=== PATIENT | male | born 1940 | race Caucasian/White ===

== ENCOUNTER 2024-03-02 10:38 | Emergency (ER) | payer MEDICARE, SELFPAY ==
[2024-03-02] VITALS (8 sets, daily range): BP systolic 122–188; BP diastolic 55–79; PULSE 53–58; BMI 24.9
--- NOTE | 2024-03-02 11:09 | ED.GENMED ---
History of Present Illness
General
Chief Complaint: Dizziness
Source: patient
Time Seen by Provider: 03/02/24 10:50
History of Present Illness
History of Present Illness:
83-year-old male with past medical history of paroxysmal atrial fibrillation, hypertension, hyperlipidemia presenting to the emergency department for evaluation after he experienced transient lightheadedness earlier this morning lasting about 30
minutes stating he was standing in his kitchen when he started to feel as if he were 'tipsy' and he decided to take his blood pressure, noting that it was a little bit elevated but more concerning to him was that his heart rate was in the low 40s.
Patient states that he is on a beta-itz and that his heart rate is usually around 54 to 58 bpm so seeing this in the low 40s was a little bit abnormal for him. Patient rechecked his pulse shortly after and it was still in the 40s prompting him
to want to come to the ER for further evaluation. Patient does follow with divemaster, Dr. Zhu, but did not feel that this could wait. Patient states that after he left his house and since arriving to the ER he has been asymptomatic and
feels back to his normal self although states his head does feel little bit foggy still. He denies any headaches, visual changes, focal weakness or numbness, ataxia, chest pain, shortness of breath, palpitations or any other concerns. Social
history was noted for a few nights per week he will have some scotch.
Past History
Past History
ED Past Medical History: Arrthythmia, CHF (Myopathy), GERD, HTN and Other (Prostate problems)
ED Past Surgical History: Cardiac, Cholecystectomy and Urological
Social History
Tobacco: Non-smoker
Alcohol: Occasional
Drug: None
Personal:
Living: with family
Employment: Retired
Family History
Family History: Hypertension
Review of Systems
Review of Systems
All Other Systems: ROS reviewed and negative except as documented in HPI and ROS
Phy Exam
Physical Exam
Physical Exam:
GENERAL: Alert , in no apparent distress
HEAD: NCAT
EYE: conjunctiva clear
NECK: Supple
ENT: o/p clr, mmm.
CARDIAC: bradycardic rate/rhythm, systolic murmur LSB
LUNGS: Clear breath sounds bilaterally, no acute respiratory distress, no wheezes/rales/rhonchi
NEUROLOGICAL: Alert and oriented
SKIN: Warm and dry, skin intact.
MUSCULOSKELETAL: well perfused.
PSYCH: Normal and appropriate interaction.
Scores
Heart Failure Risk
Heart Failure Risk Score: Not Applicable
Heart Score for Chest Pain Patients
STEMI patient?: Not applicable
Withdrawal Assessment of Alcohol
Withdrawal Assessment Completed?: Not applicable
Course
Orders/Labs/Results
Orders:
Orders
03/02/24 10:43
ECG [Electrocardiogram (*1)] Urgent
Reason for Study: Vertigo / Dizzy
EKG- Treatment ONCE
03/02/24 11:03
Orthostatic VS- Treatment ONCE
03/02/24 11:20
Complete Blood Count/With Diff Urgent
Troponin I Urgent
03/02/24 12:07
Comprehensive Metabolic Panel Urgent
Magnesium Urgent
Abnormal Lab Results
03/02/24 03/02/24
11:20 12:07
MCH 31.2 H pg
(27.0-31.0)
MPV 11.4 H fL
(7.4-10.4)
Absolute Lymphs (auto) 1.0 L 10^3/uL
(1.2-3.4)
Absolute Monos (auto) 0.7 H 10^3/uL
(0.1-0.6)
Lymphocytes % 18.2 L %
(20.5-51.1)
Monocytes % 12.4 H %
(1.7-9.3)
BUN 27 H mg/dl
(9-20)
Glucose 102 H mg/dl
(70-99)
03/02/24 11:20
03/02/24 12:07
Vital Signs
Initial and Last Documented VS:
Initial Vital Signs
Temp Pulse Resp BP Pulse Ox
97.7 F 52 18 188/79 97
03/02/24 10:40 03/02/24 10:40 03/02/24 10:40 03/02/24 10:40 03/02/24 10:40
Last Documented Vital Signs
Temp Pulse Resp BP Pulse Ox
97.7 F 50 19 122/55 97
03/02/24 10:40 03/02/24 12:45 03/02/24 12:45 03/02/24 12:00 03/02/24 10:40
MDM/Problems Addressed
Differential Diagnosis Includes:
symptomatic bradycardia, valvular dysfunction, arrhythmia, anemia
MDM/Problems Addressed:
83-year-old male presenting to the ER for evaluation after experiencing transient lightheadedness earlier this morning, was noted to have a heart rate in the low 40s, currently asymptomatic. Heart rate during exam was persistently 54 to 56 bpm. No
focal findings on exam. Will check labs, orthostatics and reassess. Patient to be kept on potline monitor. Disposition pending with anticipated close outpatient follow-up with cardiology
Chronic conditions affecting care: Arrhythmia
*Pulse Oximetry
Patient hypoxic: no
*EKG
Heart Rate: 53
Rate: bradycardiac
Rhythm: sinus
[place]: normal axis
Ischemia: no ischemia
*Hydrogen Power Plant Manager Interpretation
Rate: bradycardiac
Rhythm: sinus
*Critical Care Note
Total Time (30-74mins, 75-104mins- exclusive of procedures): Not Applicable
Patient Management
Escalation/DeEscalation of care consider admission/obs:
Patient remains asymptomatic and hemodynamically stable. Lab findings noted for mild prerenal azotemia but otherwise unremarkable. Patient feels well to be discharged home. Will notify the chest pain hotline to help expedite close follow-up with
cardiology. Patient aware of return precautions to the ER.
ED Attending Note
-
Portions of this chart may have been created with voice recognition software.� Occasional wrong word or��sound alike� substitutions may have occurred due to the inherent limitations of voice recognition software.
Discharge Plan
Departure
Patient Disposition: Home (Routine Discharge)
Date of Disposition: 03/02/24
Time of Disposition: 12:55
Patient with high blood pressure during this ER visit?: Yes
Discharge Problem:
Lightheadedness
Instructions: Dizziness, Nonvertigo, (DC), Chest Pain DCA Follow Up
Prescriptions:
No Action
lansoprazole 30 MG capsule,delayed release(DR/EC)
30 mg PO DAILY
finasteride 5 MG tablet
5 mg PO DAILY
metoprolol tartrate 25 MG tablet
25 mg PO BID
aspirin 325 MG tablet,delayed release (DR/EC)
325 mg PO DAILY
magnesium oxide 200 MG tablet
400 mg PO DAILY
Referrals:
Non Par Pcp Selected, [Other]
UNKNOWN - PT DOES,NOT KNOW [Family Provider] -
Interventions
Interventions:
*Risk Screen - Suicide Last Done: 03/02/24 10:40
*General Assessment Last Done: 03/02/24 10:40
*Neglect/Abuse Screening Last Done: 03/02/24 10:40
ED- Fall Risk Assessment Last Done: 03/02/24 13:02
*ED COVID-19 Vaccine History Last Done: 03/02/24 11:22
*Nursing Disposition Last Done: 03/02/24 13:02
ED- Neurological Assessment Last Done: 03/02/24 11:22
ED- Cardiac Assessment Last Done: 03/02/24 13:02
Discharge Date and Time
Discharge Date/Time: 03/02/24 13:04
Print Language: MOHAWK
[2024-03-02 11:29] LABS: % Basophils 0.7 % (0-2); % Eosinophils 2.4 % (0-6); % Immature Granulocytes 0.5 % (0-0.5); % Lymphocytes 18.2 % (20.5-51.1); % Monocytes 12.4 % (1.7-9.3); % Neutrophils 65.8 % (42.2-75.2); Absolute Eosinophils 0.1 10^3/uL (0-0.7); Absolute Monocytes 0.7 10^3/uL (0.1-0.6); Absolute Neutrophils 3.8 10^3/uL (1.4-6.5); Hematocrit 45.5 % (39.0-52.0); Hemoglobin 15.3 g/dL (13.0-18.0); Mean Corp Hgb Conc. 33.6 g/dL (33.0-37.0); Mean Corpuscular Hgb 31.2 pg (27.0-31.0); Mean Corpuscular Volume 92.7 fL (80.0-94.0); Mean Platelet Volume 11.4 fL (7.4-10.4); Nucleated Red Blood Cells % 0 % (-); Platelet Count 173 10^3/uL (130-400); Red Blood Cell Count 4.91 10^6/uL (4.70-6.10); Red Cell Dist. Width 12.9 % (11.5-14.5); White Blood Cell Count 5.7 10^3/uL (4.8-10.8)
[2024-03-02 11:50] LABS: Troponin I < 0.012 ng/ml
[2024-03-02 12:33] LABS: ALT (SGPT) 29 U/L (0-50); AST (SGOT) 34 U/L (17-59); Albumin 3.9 g/dl (3.5-5.0); Alkaline Phosphatase 79 U/L (38-126); Blood Urea Nitrogen 27 mg/dl (9-20); Carbon Dioxide 25 mmol/L (22-30); Chloride 106 mmol/L (98-107); Estimated Creatinine Clearance 54 ml/min; Glucose 102 mg/dl (70-99); Magnesium 2.1 mg/dl (1.6-2.3); Potassium 4.5 mmol/L (3.5-5.1); Sodium 139 mmol/L (135-145); Total Bilirubin 0.5 mg/dl (0.2-1.3); Total Protein 6.3 g/dl (6.3-8.2); eGFR > 60.00
== END 2024-03-02 13:04 | disposition home or self-care (01) ==
LOC: EMR 10:38
PROVIDERS: Physician Assistant Medical; EMERGENCY PHYSICIAN Emergency Medicine
DX: R42 Dizziness and giddiness (principal); I48.0 Paroxysmal atrial fibrillation; I11.0 Hypertensive heart disease with heart failure; I50.9 Heart failure, unspecified; E78.00 Pure hypercholesterolemia, unspecified; K21.9 Gastro-esophageal reflux disease without esophagitis; Z82.49 Family history of ischemic heart disease and other diseases of the circulatory system; Z90.49 Acquired absence of other specified parts of digestive tract
CPT/HCPCS: 99283; 80053; 83735; 84484; 85025; 93005

== ENCOUNTER 2024-07-02 12:57 | Emergency (ER) | payer MEDICARE, SELFPAY ==
[2024-07-02 13:01] VITALS: BP 145/72
--- NOTE | 2024-07-02 13:05 | ED.GENMED ---
History of Present Illness
General
Chief Complaint: Skin Problem
Time Seen by Provider: 07/02/24 13:05
History of Present Illness
History of Present Illness:
TIME OF INITIAL ENCOUNTER: 1:10 PM
HPI: 2 days ago, the patient noted that he got a splinter from his hardwood floor in his house to the plantar aspect of the lateral left foot. The majority of the splinter out. However more recently he thought that his symptoms were worsening with
increasing pain. He was concerned that there is a retained foreign body. He was also concerned about the possibly of infection. The patient states he is not on anticoagulation but does take aspirin.
EXAM:
GENERAL: Well appearing in no distress
HEENT: Moist oral mucosa
NEUROLOGIC: Excellent strength all extremities, no coordination deficits
PSYCHIATRIC: Appropriate mental status, normal insight and judgement
EXTREMITIES: There is a subcentimeter lesion over the skin of the distal fifth metatarsal with point tenderness but no significant erythema nor warmth. There is no clear evidence for cellulitis, there is no definite palpable foreign body
NUMBER AND COMPLEXITY OF PROBLEMS ADDRESSED AT THE ENCOUNTER
� Chronic conditions affecting care: Atrial fibrillation, cardiomyopathy, high blood pressure, BPH, skin cancer
� Acute Exacerbation and/or Progression of Chronic Illness: This is an acute problem
� Differential Diagnosis includes: Retained foreign body, inflammatory response from resolved foreign body, wound infection/cellulitis
AMOUNT AND/OR COMPLEXITY OF DATA TO BE REVIEWED AND ANALYZED
� I performed an independent evaluation of and my interpretation is:
EKG:
CT:
X-rays:
Laboratory Studies:
Other:
� Review of other/old records: The patient was seen here with lightheadedness a few months ago
� Clinical information was obtained by an independent historian: None needed
� Prescriptions/Medications Considered but not given:
� Further testing considered but not performed:
RISK OF COMPLICATIONS AND/OR MORBIDITY OR MORTALITY OF PATIENT MANAGEMENT
� Social determinants of health affecting care: Lives at home
� Discussion with other providers:
� Escalation of care including admission/observation vs risk of discharge considered: I personally used ultrasound machine but see no clear evidence of foreign body, some inflammatory changes noted but no density/shadowing to
suggest foreign body. I did use lidocaine with epi and made a 0.5 cm incision to the area of concern and used hemostats to open the wound however there was no foreign body noted. I placed a pressure dressing with Neosporin. He is to follow-up
with either his net developer consultant, Dr. Abarca, or on-call podiatry. Placed on lactic antibiotics.
ANY OTHER UPDATES:
Past History
Past History
ED Past Medical History: Arrthythmia, CHF (Myopathy), GERD, HTN and Other (Prostate problems)
ED Past Surgical History: Cardiac, Cholecystectomy and Urological
Social History
Tobacco: Non-smoker
Alcohol: Occasional
Drug: None
Personal:
Living: with family
Employment: Retired
Family History
Family History: Hypertension
Phy Exam
Physical Exam
Physical Exam:
See HPI
Course
Vital Signs
Initial and Last Documented VS:
Initial Vital Signs
Temp Pulse Resp BP Pulse Ox
36.8 C 59 20 145/72 98
07/02/24 13:01 07/02/24 13:01 07/02/24 13:01 07/02/24 13:01 07/02/24 13:01
Last Documented Vital Signs
Temp Pulse Resp BP Pulse Ox
36.8 C 59 20 145/72 98
07/02/24 13:01 07/02/24 13:01 07/02/24 13:01 07/02/24 13:01 07/02/24 13:01
*Critical Care Note
Total Time (30-74mins, 75-104mins- exclusive of procedures): Not Applicable
ED Attending Note
-
Portions of this chart may have been created with voice recognition software.� Occasional wrong word or��sound alike� substitutions may have occurred due to the inherent limitations of voice recognition software.
Discharge Plan
Departure
Patient Disposition: Home (Routine Discharge)
Date of Disposition: 07/02/24
Time of Disposition: 13:53
Patient with high blood pressure during this ER visit?: Yes
Discharge Problem:
Sensation of foreign body
Prescriptions:
New
cephalexin 500 mg tablet
500 mg PO TID Qty: 21 0RF
No Action
lansoprazole 30 MG capsule,delayed release(DR/EC)
30 mg PO DAILY
finasteride 5 MG tablet
5 mg PO DAILY
metoprolol tartrate 25 MG tablet
25 mg PO BID
aspirin 325 MG tablet,delayed release (DR/EC)
325 mg PO DAILY
magnesium oxide 200 MG tablet
400 mg PO DAILY
Referrals:
Se Xiao PA [Family Provider] -
Annmarie Abarca DPM [Active] - Follow up in 2-3 days
Apolinar Weber MD [Active] - Follow up in 2-3 days
Activity Restrictions/Additional Instructions:
I did not see any definite sign of a foreign body on the ultrasound. I did open up the area and if there is something small could help it come out on its own. I am sending a prescription to your pharmacy to have an infection. Follow-up with
either Dr. Abarca or Dr. Weber.
Interventions
Interventions:
*Risk Screen - Suicide Last Done: 07/02/24 13:01
*General Assessment Last Done: 07/02/24 13:01
*Neglect/Abuse Screening Last Done: 07/02/24 13:01
*ED- Fall Risk Assessment Last Done: 07/02/24 13:37
*ED COVID-19 Vaccine History Last Done: 07/02/24 13:37
*Nursing Disposition Last Done: 07/02/24 14:00
ED-Skin Assessment Last Done: 07/02/24 13:40
Discharge Date and Time
Print Language: MALDIVIAN
[2024-07-02 13:37] VITALS: BMI 25.5
== END 2024-07-02 14:00 | disposition home or self-care (01) ==
LOC: EMR 12:57
PROVIDERS: EMERGENCY PHYSICIAN Emergency Medicine; FAMILY PHYSICIAN Physician Assistant
DX: Z03.89 Encounter for observation for other suspected diseases and conditions ruled out (principal); M79.672 Pain in left foot; I11.0 Hypertensive heart disease with heart failure; I50.9 Heart failure, unspecified; K21.9 Gastro-esophageal reflux disease without esophagitis; Z79.82 Long term (current) use of aspirin; Z90.49 Acquired absence of other specified parts of digestive tract
CPT/HCPCS: 99283; 10120

== ENCOUNTER → 2025-01-30 07:42 | Outpatient (REF) | payer MEDICARE, SELFPAY | LOC: RAD 07:42 | PROVIDERS: ATTENDING PHYSICIAN Urology; FAMILY PHYSICIAN Physician Assistant | DX: N40.1 Benign prostatic hyperplasia with lower urinary tract symptoms (principal); N13.8 Other obstructive and reflux uropathy; N41.9 Inflammatory disease of prostate, unspecified; N39.0 Urinary tract infection, site not specified; R31.0 Gross hematuria; N28.1 Cyst of kidney, acquired; E27.8 Other specified disorders of adrenal gland; R97.20 Elevated prostate specific antigen [PSA] | CPT/HCPCS: 76775 ==